=== PATIENT | male | born 1955 | race Caucasian/White ===

== ENCOUNTER 2022-02-01 14:53 | Outpatient (CLI) | payer BC, SELFPAY ==
--- OUTSIDE RECORDS SUMMARY | 2022-02-01 14:56 | XMS_ITS | Continuity of Care Document ---
:1955 Author Organization [facility] Address [address] [place] [address]- Care Team Providers Name Role Phone Tex Alexander Primary Care Physician [phone] Encounter 01/18/19 - 01/24/19 [facility] [address] [place] [address]- Attending Physician: Tam Arana MD Allergies, Adverse Reactions, Alerts Substance Reaction Severity Status shellfish Unknown Active Medications Allergy medication OTC Allergy medication OTC, 1 tablet daily, Each, 0 Start Date: 08/31/18 Status: OrderedLipitor 80 mg, , PO, , Bedtime, Each, Maintenance Start Date: 10/12/10 Status: Orderedmetoprolol succinate 100 mg, PO, Daily, Each, 0 Refill(s) Start Date: 08/31/18 Status: Orderedpantoprazole 40 mg, Daily, Each, 0 Refill(s) Start Date: 08/31/18 Status: Ordered Problem List Condition Effective Dates Status Health Status Informant Inguinal hernia(Confirmed)1 Active patient Kidney stones(Confirmed) 2014 Active pat ient [place] (myocardial infarction)(Confirmed)2 Active patient Upper GI bleed(Confirmed) 2004 Active pa tient [id number] 39 x 2 [place] (2 stents placed, Age 57 x 1 (1 stent placed) Procedures Procedure Date Related Diagnosis Body Site Status Colonoscopy 09/04/18 Completed Inguinal hernia1 2010 Completed Cardiac catheterization Comp leted Kidney stone2 Completed Stent placement3 Completed 1x 3 [id number], age 89when pt was 39 years old Social History Social History Type Response Smoking Status Former smoker, quit more shubham n 1 year ago Sex
--- OUTSIDE RECORDS SUMMARY | 2022-02-01 14:56 | XMS_ITS | Continuity of Care Document ---
:1955 Author Organization [facility] Address [address] [place] [address]- Care Team Providers Name Role Phone Tex Alexander Primary Care Physician [phone] Encounter 12/04/18 - 12/10/18 [facility] [address] [place] [address]- Attending Physician: Tex Alexander DO Allergies, Adverse Reactions, Alerts Substance Reaction Severity [...] patient Kidney stones(Confirmed) 2014 Active pat ient [place] (myocardial infarction)(Confirmed)2 Active patient Upper GI bleed(Confirmed) 2004 Active pa tient 7Alams1Pwn 39 x 2 [place] (2 stents placed, Age 57 x 1 (1 stent placed) Procedures Procedure Date Related Diagnosis Body Site Status Colonoscopy 09/04/18 Completed Inguinal hernia1 2010 Completed Cardiac catheterization Comp leted Kidney stone2 Completed Stent placement3 Completed 1x 3 [id number], age 89when pt was 39 years old Social History Social History Type Response Smoking Status Former smoker, quit more shubham n 1 year ago Sex
--- OUTSIDE RECORDS SUMMARY | 2022-02-01 14:56 | XMS_ITS | Clinical Summary ---
:1955 Author Organization [employer] [facility] [place] [address] Care Team Providers Name Role Phone Bruce Curry MD Primary Care Provider Allergies No known active allergies Medications Medication Sig Dispensed Refills Start Date End Date Status atorvastatin (LIPITOR) Take 80 mg by 0 Active 20 mg tablet mouth once daily. pantoprazole (PROTONIX) Take 40 mg by 0 Active 20 mg tablet mouth once daily. Active Problems Problem Noted Date Hyperlipidemia 11/13/2017 Hypertension 11/13/2017 ASCVD (arteriosclerotic cardiovascular disease) 2017 Dickinson's esophagus 11/13/2017 Prediabetes 11/13/2017 Social History Tobacco Use Types Packs/Day Years Used Date Former Smoker Smokeless Tobacco: Never Used Alcohol Use Standard Drinks/Week Comments No 0 (1 standard drink = 0.6 oz pure alcoho l) Sex Assigned at Date Recorded Not on file Obstetrics History Last Filed Vital Signs Vital Sign Reading Time Taken Comments Blood Pressure 170/91 11/13/2017 12:41 PM CDT Pulse 74 11/13/2017 12:41 PM CDT Temperature 36.6 ??C (97.9 ??F) 11/13/2017 12:41 PM CDT Respiratory Rate 20 11/13/2017 12:41 PM CDT Oxygen Saturation 100% 11/13/2017 12:41 PM CDT Inhaled Oxygen Concentration - - Weight 122.1 kg (269 lb 1.6 oz) 11/13/2017 12:41 PM CDT Height 182.9 cm (6') 11/13/2017 12:41 PM CDT Body Mass Index 36.5 11/13/2017 12:41 PM CDT Plan of Treatment Not on file Results Not on filefrom Last 3 Months Insurance Payer Benefit Plan / Subscriber ID Effective Dates Phone Addre ss Type Group BLUE CROSS BLUE CROSS OF [id number] 2017-Presen [address] [place] [address] [employer] [facility] Other 06/13/1979 PS[employer]CH EMEDICS, 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
--- OUTSIDE RECORDS SUMMARY | 2022-02-01 14:56 | XMS_ITS | Continuity of Care Document ---
:1955 Author Organization [facility] Address [address] [place] [address]- Care Team Providers Name Role Phone Tex Alexander Primary Care Physician [phone] Encounter 03/18/20 - 03/24/20 [facility] [address] [place] [address]- Attending Physician: Tex Alexander DO Allergies, Adverse [...] patient Kidney stones(Confirmed) 2014 Active pat ient [place] (myocardial infarction)(Confirmed)2 Active patient Upper GI bleed(Confirmed) 2004 Active pa tient 3Xosvb5Bfp 39 x 2 [place] (2 stents placed, Age 57 x 1 (1 stent placed) Procedures Procedure Date Related Diagnosis Body Site Status Colonoscopy 09/04/18 Completed Inguinal hernia1 2010 Completed Cardiac catheterization Comp leted Kidney stone2 Completed Stent placement3 Completed 1x 3 utkrvvw0Xisnelg, age 89when pt was 39 years old Social History Social History Type Response Smoking Status Former smoker, quit more shubham n 1 year ago Sex
--- OUTSIDE RECORDS SUMMARY | 2022-02-01 14:56 | XMS_ITS | Continuity of Care Document ---
:1955 Author Organization [facility] Address [address] [place] [address]- Encounter 11/25/21 - 12/01/21 [facility] [address] [place] [address]- Attending Physician: Ce Amin MD Allergies, Adverse Reactions, Alerts Substance Reaction [...] patient Kidney stones(Confirmed) 2014 Active pat ient [place] (myocardial infarction)(Confirmed)2 Active patient Upper GI bleed(Confirmed) 2004 Active pa tient 1Paith1Bbe 39 x 2 [place] (2 stents placed, Age 57 x 1 (1 stent placed) Procedures Procedure Date Related Diagnosis Body Site Status Colonoscopy 09/04/18 Completed Inguinal hernia1 2010 Completed Cardiac catheterization Comp leted Kidney stone2 Completed Stent placement3 Completed 1x 3 agnqvkk2Joenltl, age 89when pt was 39 years old Social History Social History Type Response Smoking Status Former smoker, quit more shubham n 1 year ago Sex
--- OUTSIDE RECORDS SUMMARY | 2022-02-01 14:56 | XMS_ITS | Encounter Summary ---
:1955 Demographics Home Phone Preferred Language German Marital Status Unknown Mandaeism Affiliation Unknown Race Unknown Ethnic Group Unknown Author Organization [facility] Address [address] [place] [address] Care Team Providers Name Role Phone Unavailable Primary Care Provider Unavailable Encounter Details Date Type Department Care Team Description 04/14/2006 Interface Meds [facility] Family Practice Provider, [address] [place] [address] Social History Tobacco Use Types Packs/Day Years Used Date Never Assessed Sex Assigned at Date Recorded Not on file documented as of this encounter Plan of Treatment Not on filedocumented as of this encounter Visit Diagnoses Not on filedocumented in this encounter Historical Medications This list may reflect changes made after this encounter. Medication Sig Dispensed Refills Start Date End Date Alavert 10 mg Tab, Rapid Place prn by mouth for 0 04/14/2006 Dissolve allergies Protonix 40 mg Tab 1 daily 0 04/14/2006 Metoprolol 50 mg Tab 1 daily 0 04/14/2006 Zetia 10 mg Tab 1 daily 0 04/14/2006 Lisinopril 5 mg Tab 1 daily 0 04/14/2006 Lipitor 40 mg Tab 1 daily 0 04/14/2006 added in this encounter
--- OUTSIDE RECORDS SUMMARY | 2022-02-01 14:56 | XMS_ITS | Continuity of Care Document ---
:1955 Author Organization [facility] Address [address] [place] [address]- Care Team Providers Name Role Phone Tex Alexander Primary Care Physician [phone] Encounter 11/15/18 - 11/21/18 [facility] [address] [place] [address]- Attending Physician: Tex Alexander DO Allergies, Adverse [...] patient Kidney stones(Confirmed) 2014 Active pat ient [place] (myocardial infarction)(Confirmed)2 Active patient Upper GI bleed(Confirmed) 2004 Active pa tient 5Pwhoh6Aks 39 x 2 [place] (2 stents placed, Age 57 x 1 (1 stent placed) Procedures Procedure Date Related Diagnosis Body Site Status Colonoscopy 09/04/18 Completed Inguinal hernia1 2010 Completed Cardiac catheterization Comp leted Kidney stone2 Completed Stent placement3 Completed 1x 3 onnecgh0Qpdsvxk, age 89when pt was 39 years old Social History Social History Type Response Smoking Status Former smoker, quit more shubham n 1 year ago Sex
--- OUTSIDE RECORDS SUMMARY | 2022-02-01 14:56 | XMS_ITS | Continuity of Care Document ---
:1955 Author Organization [facility] Address [address] [place] [address]- Care Team Providers Name Role Phone Tex Alexander Primary Care Physician [phone] Encounter 01/21/20 - 01/27/20 [facility] [address] [place] [address]- Attending Physician: Tex Alexander DO Allergies, Adverse [...] patient Kidney stones(Confirmed) 2014 Active pat ient [place] (myocardial infarction)(Confirmed)2 Active patient Upper GI bleed(Confirmed) 2004 Active pa tient 7Xmxbx2Xae 39 x 2 [place] (2 stents placed, Age 57 x 1 (1 stent placed) Procedures Procedure Date Related Diagnosis Body Site Status Colonoscopy 09/04/18 Completed Inguinal hernia1 2010 Completed Cardiac catheterization Comp leted Kidney stone2 Completed Stent placement3 Completed 1x 3 nvfvufi6Dmgxbsq, age 89when pt was 39 years old Social History Social History Type Response Smoking Status Former smoker, quit more shubham n 1 year ago Sex
--- OUTSIDE RECORDS SUMMARY | 2022-02-01 14:56 | XMS_ITS | Continuity of Care Document ---
:1955 Author Organization [facility] Address [address] [place] [address]- Care Team Providers Name Role Phone Tex Alexander Primary Care Physician [phone] Encounter 06/18/19 - 06/24/19 [facility] [address] [place] [address]- Attending Physician: Tex Alexander DO Allergies, Adverse [...] patient Kidney stones(Confirmed) 2014 Active pat ient [place] (myocardial infarction)(Confirmed)2 Active patient Upper GI bleed(Confirmed) 2004 Active pa tient 3Wplms9Far 39 x 2 [place] (2 stents placed, Age 57 x 1 (1 stent placed) Procedures Procedure Date Related Diagnosis Body Site Status Colonoscopy 09/04/18 Completed Inguinal hernia1 2010 Completed Cardiac catheterization Comp leted Kidney stone2 Completed Stent placement3 Completed 1x 3 oytodfk5Ocyqcdx, age 89when pt was 39 years old Social History Social History Type Response Smoking Status Former smoker, quit more shubham n 1 year ago Sex
--- OUTSIDE RECORDS SUMMARY | 2022-02-01 14:56 | XMS_ITS | Continuity of Care Document ---
:1955 Author Organization [facility] Address [address] [place] [address]- Care Team Providers Name Role Phone Tex Alexander Primary Care Physician [phone] Encounter 11/15/19 - 11/21/19 [facility] [address] [place] [address]- Attending Physician: Tex Alexander DO Allergies, Adverse [...] patient Kidney stones(Confirmed) 2014 Active pat ient [place] (myocardial infarction)(Confirmed)2 Active patient Upper GI bleed(Confirmed) 2004 Active pa tient 1Dzvrb8Omk 39 x 2 [place] (2 stents placed, Age 57 x 1 (1 stent placed) Procedures Procedure Date Related Diagnosis Body Site Status Colonoscopy 09/04/18 Completed Inguinal hernia1 2010 Completed Cardiac catheterization Comp leted Kidney stone2 Completed Stent placement3 Completed 1x 3 retzbml5Zmverbd, age 89when pt was 39 years old Results Sodium Level Most recent to oldest [Reference Range]: 1 Sodium Level [136-145 mMol/L] 138 mMol/L (11/15/19 8:55 AM) Potassium Level Most recent to oldest [Reference Range]: 1 Potassium Level [3.5-5.1 mMol/L] 4.3 mMol/L (11/15/19 8:55 AM) Chloride Level Most recent to oldest [Reference Range]: 1 Chloride Level [98-107 mMol/L] 105 mMol/L (11/15/19 8:55 AM) Carbon Dioxide Level Most recent to oldest [Reference Range]: 1 Carbon Dioxide Level [21-31 mMol/L] 24 mMol/L (11/15/19 8:55 AM) BUN Most recent to oldest [Reference Range]: 1 BUN [7-25 mg/dL] 16 mg/dL (11/15/19 8:55 AM) Creatinine Most recent to oldest [Reference Range]: 1 Creatinine [0.7-1.3 mg/dL] 0.9 mg/dL (11/15/19 8:55 AM) Calcium Total Most recent to oldest [Reference Range]: 1 Calcium Total [8.6-10.3 mg/dL] 9.2 mg/dL (11/15/19 8:55 AM) Glucose Level Most recent to oldest [Reference Range]: 1 Glucose Level [See comments below mg/dL] 154 mg/dL 1 *ABN* (11/15/19 8:55 AM) 1Result Comment: Reference Range for Glucose is 74-109 mg/dLMagnesium Level Most recent to oldest [Reference Range]: 1 Magnesium Level [1.9-2.7 mg/dL] 2.1 mg/dL (11/15/19 8:55 AM) Albumin Level Most recent to oldest [Reference Range]: 1 Albumin Level [3.5-5.7 gm/dL] 4.3 gm/dL (11/15/19 8:55 AM) Bilirubin Total Most recent to oldest [Reference Range]: 1 Bilirubin Total [0.3-1.0 mg/dL] 1.1 mg/dL *HI* (11/15/19 8:55 AM) ALT/SGPT Most recent to oldest [Reference Range]: 1 ALT/SGPT [7-52 Units/L] 29 Units/L (11/15/19 8:55 AM) AST/SGOT Most recent to oldest [Reference Range]: 1 AST/SGOT [13-39 Units/L] 20 Units/L (11/15/19 8:55 AM) Alkaline Phosphatase Most recent to oldest [Reference Range]: 1 Alkaline Phosphatase [45-115 IU/L] 128 IU/L *HI* (11/15/19 8:55 AM) WBC Count Most recent to oldest [Reference Range]: 1 WBC Count [4.40-10.80 X10 3/uL] 6.76 X10 3/uL (11/15/19 8:55 AM) Hemoglobin Most recent to oldest [Reference Range]: 1 Hemoglobin [13.1-17.0 gm/dL] 14.9 gm/dL (11/15/19 8:55 AM) Hematocrit Most recent to oldest [Reference Range]: 1 Hematocrit [39.0-50.0 %] 42.1 % (11/15/19 8:55 AM) Platelet Count Most recent to oldest [Reference Range]: 1 Platelet Count [145-428 X10 3/uL] 211 X10 3/uL (11/15/19 8:55 AM) Social History Social History Type Response Smoking Status Former smoker, quit more shubham n 1 year ago Sex
--- OUTSIDE RECORDS SUMMARY | 2022-02-01 14:56 | XMS_ITS | Continuity of Care Document ---
:1955 Author Organization [facility] Address [address] [place] [address]- Care Team Providers Name Role Phone Tex Alexander Primary Care Physician [phone] Encounter 01/24/19 - 01/30/19 [facility] [address] [place] [address]- Attending Physician: Tex Alexander DO Allergies, Adverse [...] patient Kidney stones(Confirmed) 2014 Active pat ient [place] (myocardial infarction)(Confirmed)2 Active patient Upper GI bleed(Confirmed) 2004 Active pa tient 4Wxwnb5Okv 39 x 2 [place] (2 stents placed, Age 57 x 1 (1 stent placed) Procedures Procedure Date Related Diagnosis Body Site Status Colonoscopy 09/04/18 Completed Inguinal hernia1 2010 Completed Cardiac catheterization Comp leted Kidney stone2 Completed Stent placement3 Completed 1x 3 qovxdis4Ygbffes, age 603when pt was 39 years old Social History Social History Type Response Smoking Status Former smoker, quit more shubham n 1 year ago Sex
--- OUTSIDE RECORDS SUMMARY | 2022-02-01 14:56 | XMS_ITS | Clinical Summary ---
:1955 Demographics Home Phone Preferred Language Namibian Marital Status Unknown Jainism Affiliation Unknown Race Unknown Ethnic Group Unknown Author Organization [facility] incl pattie [facility] Address [address] [id number] Care Team Providers Name Role Phone Inactive, Administrativel Primary Care Provider [phone] Source Comments If you need additional information that is not available on Care Everywhere, please contact our Medical Records Department during business hours (Tuesday - Tuesday, 8 am - 5 pm) at . During nonbusiness hours, please contact our Trauma and Emergency Center at .[facility] including [facility] Medications Medications may not be up to date as of this document. Always verify current medications with the patient. Medication Sig Dispensed Refills Start Date End Date Status Lipitor 40 mg Tab 1 daily 0 04/14/2006 A ctive Lisinopril 5 mg Tab 1 daily 0 04/14/2006 Active Zetia 10 mg Tab 1 daily 0 04/14/2006 Act ezequiel Metoprolol 50 mg Tab 1 daily 0 04/14/2006 Active Protonix 40 mg Tab 1 daily 0 04/14/2006 Active Alavert 10 mg Tab, Place prn by mouth 0 04/14/2006 Active Rapid Dissolve for allergies Immunizations Name Administration Dates Next Due Influenza Vaccine Whole 04/11/2006 Pneumococcal polysaccharide PPV23 04/11/2006 Social History Tobacco Use Types Packs/Day Years Used Date Never Assessed Sex Assigned at Date Recorded Not on file Plan of Treatment Health Maintenance Due Date Last Done Comments CREATININE/EGFR 1955 HEPATITIS C SCREENING 1955 POTASSIUM 1955 COVID-19 Vaccine (#1) 1955 DEPRESSION/ANXIETY PHQ4 1973 LIPID SCREEN 1973 WELLNESS VISIT 1973 DTaP/Tdap/Td (1 - Tdap) 1974 PERTUSSIS 1974 COLONOSCOPY 2000 DIABETES SCREENING 2000 SHINGLES VACCINE (SHINGRIX) (1 of 2) 2005 PNEUMOCOCCAL AGES 65 YEARS OR MORE (1 - PCV) 2020 INFLUENZA (#1) 2022 04/11/2006 Care Teams Production Cook Relationship Specialty Start Date End Date Inactive, Administrativel PCP - General 05/03/15 [address] [facility] [place] [address]
--- OUTSIDE RECORDS SUMMARY | 2022-02-01 14:56 | XMS_ITS | Continuity of Care Document ---
:1955 Author Organization [facility] Address [address] [place] [address]- Encounter 07/07/21 - 07/13/21 [facility] [address] [place] [address]- Encounter Diagnosis Bronchitis, not specified as acute or chronic (Final) - Essential (primary) hypertension (Final) - Pure hypercholesterolemia, unspecified (Final) - Attending Physician: Mali Stoddard NP Allergies, Adverse Reactions, Alerts Substance Reaction Severity [...] Upper GI bleed(Confirmed) 2004 Active pa tient 0Ruiad8Dxe 39 x 2 PR (2 stents placed, Age 57 x 1 (1 stent placed) Procedures Procedure Date Related Diagnosis Body Site Status Colonoscopy 09/04/18 Completed Inguinal hernia1 2010 Completed Cardiac catheterization Comp leted Kidney stone2 Completed Stent placement3 Completed 1x 3 tjcoyjf0Fuefffq, age 603when pt was 39 years old Results SARS-CoV-2 (micro) Most recent to oldest [Reference Range]: 1 SARS-CoV-2 [Not Detected] Not Detected 1 (07/07/21 9:13 AM) 1Result Comment: Testing Performed by RT-PCR method. Social History Social History Type Response Smoking Status Former smoker, quit more shubham n 1 year ago Sex
--- OUTSIDE RECORDS SUMMARY | 2022-02-01 14:56 | XMS_ITS | Continuity of Care Document ---
:1955 Author Organization [facility] Address [address] [place] [address]- Encounter 05/22/20 - 08/14/20 [facility] [address] [place] [address]- Attending Physician: Sumit CLAYTON, Tam Powell Allergies, Adverse Reactions, Alerts Substance Reaction Severity [...] patient Kidney stones(Confirmed) 2014 Active pat ient [place] (myocardial infarction)(Confirmed)2 Active patient Upper GI bleed(Confirmed) 2004 Active pa tient 8Okgqy5Ugk 39 x 2 [place] (2 stents placed, Age 57 x 1 (1 stent placed) Procedures Procedure Date Related Diagnosis Body Site Status Colonoscopy 09/04/18 Completed Inguinal hernia1 2010 Completed Cardiac catheterization Comp leted Kidney stone2 Completed Stent placement3 Completed 1x 3 hzrvldg4Dxdobty, age 603when pt was 39 years old Social History Social History Type Response Smoking Status Former smoker, quit more shubham n 1 year ago Sex
[2022-02-01 21:36] LABS: Albumin* 4.2 g/dL (3.3-5.0); Chloride* 105 mmol/L (96-114)
[2022-02-01 21:37] LABS: Potassium* 4.1 mmol/L (3.6-5.1); Sodium* 138 mmol/L (135-149)
[2022-02-01 21:39] LABS: Aspartate Amino Transferase* 27 U/L (12-35); Bilirubin Total* 0.7 mg/dL (0.1-1.5); Carbon Dioxide* 23 mmol/L (20-32); Creatinine* 1.2 mg/dL (0.5-1.5); Estimated Glomerular Filt Rate 67 ml/min
[2022-02-01 21:40] LABS: Alanine Aminotransferase* 20 U/L (4-50); Alkaline Phosphatase* 101 U/L (40-150); Blood Urea Nitrogen* 15 mg/dL (7-30); Calcium* 9.4 mg/dL (8.4-10.6); Glucose* 105 mg/dL (60-115)
== END 2022-02-01 14:54 | disposition home or self-care (01) ==
PROVIDERS: PCP Family Medicine; Visit Provider Family Medicine
DX: E11.9 Type 2 diabetes mellitus without complications (principal); I10 Essential (primary) hypertension; R35.0 Frequency of micturition; E11.29 Type 2 diabetes mellitus with other diabetic kidney complication
CPT/HCPCS: 80053; 87086

== ENCOUNTER 2022-02-04 15:32 | Outpatient (CLI) | payer BC, SELFPAY ==
--- OUTSIDE RECORDS SUMMARY | 2022-02-04 11:27 | XMS_ITS | Clinical Summary ---
:1955 Demographics Home Phone Preferred Language Libyan Marital Status Unknown Moravian Affiliation Unknown Race Unknown Ethnic Group Unknown Author Organization [facility] incl pattie [facility] Address [address] [id number] Care Team Providers Name Role Phone Inactive, Administrativel Primary Care Provider [phone] Source Comments If you need additional information that is not available on Care Everywhere, please contact our Medical Records Department during business hours (Tuesday - Tuesday, 8 am - 5 pm) at . During nonbusiness hours, please contact our Trauma and Emergency Center at .[facility] including [facility] Medications Medications may not be up to [...] 2020 INFLUENZA (#1) 2022 04/11/2006 Care Teams Sweet Pickled Fruit Maker Relationship Specialty Start Date End Date Inactive, Administrativel PCP - General 05/03/15 [address] [facility] [place] [address]
--- OUTSIDE RECORDS SUMMARY | 2022-02-04 11:27 | XMS_ITS | Encounter Summary ---
:1955 Demographics Home Phone Preferred Language Turkmen Marital Status Unknown Restorationism Affiliation Unknown Race Unknown Ethnic Group Unknown Author Organization [facility] Address [address] [place] [address] Care Team Providers Name Role Phone Unavailable Primary Care Provider Unavailable Encounter Details Date Type Department Care Team Description 04/14/2006 Interface Meds [facility] Family Practice Provider, [address] [place] [address] Social History Tobacco Use Types [...]
--- OUTSIDE RECORDS SUMMARY | 2022-02-04 11:27 | XMS_ITS | Clinical Summary ---
:1955 Author Organization [employer] [facility] [place] [address] Care Team Providers Name Role Phone Bruce [...] Type Group BLUE CROSS [employer] OF [id number] 2017[employer] [address] [place] [address] [employer] Other 06/13/1979 PS[employer]CH EMEDICS, TESTING (Work) HAILY [address] [place] [address] [employer] 06/13/2000 ATTN ROSA (Home) GADIEN [address] [place] [address] VLADIMIR DS [employer] Employer 06/13/2000 A TTN [employer] ADVANTAGE (Home) [address] [place] [address] [employer] Employer 06/13/2000 OR ANSON [employer] (Home) DEPT [id number] Franklyn Macdonald [phone] WANG (Work) [place] [address] Care Teams Digital Field Service Technician Relationship Specialty Start Date End Date Bruce Curry MD PCP - General Family Practice 11/13/[address] [place] [address]
[2022-02-04 21:51] LABS: Collection Time Urine 24 Hours; Total Volume 24 Hour Urine 3200 ml; Urine Creatinine mg/24 Hour 0 mg/Day
[2022-02-04 21:58] LABS: Total Protein 24 Hour Urine 3072 mg/dL; Total Protein Urine 96 mg/dL
[2022-02-04 22:02] LABS: Creatinine Urine 57.2 mg/dL
== END 2022-02-04 15:33 | disposition home or self-care (01) ==
PROVIDERS: PCP Family Medicine; Visit Provider Family Medicine
DX: E11.29 Type 2 diabetes mellitus with other diabetic kidney complication (principal); R80.9 Proteinuria, unspecified; R35.0 Frequency of micturition
CPT/HCPCS: 82570; 84156

== ENCOUNTER 2022-02-22 14:13 | Outpatient (CLI) | payer BC, SELFPAY ==
--- OUTSIDE RECORDS SUMMARY | 2022-02-22 14:19 | XMS_ITS | Clinical Summary ---
:1955 Demographics Home Phone Preferred Language Japanese Marital Status Unknown Mandaen Affiliation Unknown Race Unknown Ethnic Group Unknown Author Organization [facility] incl pattie [facility] Address [address] [id number] Care Team Providers Name Role Phone Inactive, Administrativel Primary Care Provider [phone] Source Comments If you need additional information that is not available on Care Everywhere, please contact our Medical Records Department during business hours (Tuesday - Tuesday, 8 am - 5 pm) at . During nonbusiness hours, please contact our Trauma and Emergency Center at .[facility] including [facility] Medications Medications may not be up to [...] 2020 INFLUENZA (#1) 2022 04/11/2006 Care Teams Fiber Worker Relationship Specialty Start Date End Date Inactive, Administrativel PCP - General 05/03/15 [address] [facility] [place] [address]
--- OUTSIDE RECORDS SUMMARY | 2022-02-22 14:19 | XMS_ITS | Encounter Summary ---
:1955 Demographics Home Phone Preferred Language Urdu Marital Status Unknown Episcopalian Affiliation Unknown Race Unknown Ethnic Group Unknown Author Organization [facility] Address [address] [place] [address] Care Team Providers Name Role Phone Unavailable Primary Care Provider Unavailable Encounter Details Date Type Department Care Team Description 04/14/2006 Interface Meds [facility] [place] Family Practice Provider, [address] [place] [address] Social History Tobacco Use Types [...]
--- OUTSIDE RECORDS SUMMARY | 2022-02-22 14:19 | XMS_ITS | Clinical Summary ---
:1955 Author Organization [facility] [place] [address] Care Team Providers Name Role Phone Bruce [...] Type Group BLUE CROSS BL[employer] OF [id number] 2017-Presen [address] [place] [address] [employer] [facility] Other 06/13/1979 PSYCH EMEDICS, TESTING (Work) HAILY [address] [place] [address] [employer] [facility] 06/13/2000 ATTN ROSA (Home) GADIEN [address] [place] [address] [employer] [facility] Employer 06/13/2000 A [employer] (Home) [address] [place] [address] [employer] [facility] Employer 06/13/2000 OR [place] (Home) DEPT [id number] Franklyn Macdonald [phone] (Work) [place] [id number] Care Teams Pharmacy Student Relationship Specialty Start Date End Date Bruce Curry MD PCP - General Family Practice 11/13/[address] [place] [address]
--- NOTE | 2022-02-22 15:00 | CRLHL7_ITS ---
For Patients: As a result of the Cures Act, medical imaging exams and procedure reports are released immediately into your electronic medical record. You may view this report before your referring provider. If you have questions, please contact your health care provider. INDICATION: Type 2 diabetes mellitus TECHNIQUE: Ultrasound renal bilateral. Garcia-scale and color Doppler sonographic images were acquired of the kidneys and urinary bladder. COMPARISON: None FINDINGS: Right Kidney: 9.3 cm. The right kidney is normal in appearance and echotexture. No hydronephrosis or ureterectasis is seen. Left Kidney: 10.6 cm. The left kidney is normal in appearance and echotexture. No hydronephrosis or ureterectasis is seen. Bladder: The bladder is unremarkable in appearance. Color Doppler images demonstrate bilateral ureteral jets. Mild enlargement of the prostate gland is noted measuring 4.8 x 3.6 x 4.4 cm. IMPRESSION: 1. Mild enlargement of the prostate gland is noted measuring 4.8 x 3.6 x 4.4 cm. Correlation with physical examination and PSA levels are recommended. Dictated by Mahin Lopez MD @ 02/22/2022 3:35:06 PM Dictated by: Mahin Lopez MD @ 02/22/2022 15:35:11 (Electronically Signed)
== END 2022-02-22 14:14 | disposition home or self-care (01) ==
LOC: US 14:17
PROVIDERS: PCP Family Medicine; Visit Provider Family Medicine
DX: E11.29 Type 2 diabetes mellitus with other diabetic kidney complication (principal); R80.9 Proteinuria, unspecified; N40.0 Benign prostatic hyperplasia without lower urinary tract symptoms
CPT/HCPCS: 76770

== ENCOUNTER 2023-03-01 14:47 | Outpatient (CLI) | payer BC, SELFPAY | END 2023-03-01 14:48 | disposition home or self-care (01) | LOC: LKVREF 14:48 | PROVIDERS: PCP Family Medicine; Visit Provider Family Medicine | DX: R20.0 Anesthesia of skin (principal); I10 Essential (primary) hypertension; E11.9 Type 2 diabetes mellitus without complications; G45.9 Transient cerebral ischemic attack, unspecified; R80.9 Proteinuria, unspecified | CPT/HCPCS: 80048; 82043; 82570; 84443 ==

== ENCOUNTER 2023-12-01 08:41 | Outpatient (CLI) | payer BC, SELFPAY ==
--- OUTSIDE RECORDS SUMMARY | 2023-12-01 08:48 | XMS_ITS | Clinical Summary ---
Author Organization [facility] Address [address] [place] [address] Care Team Providers Care Pharmacist Intern Name Role Phone Chin Tang D.O. Primary Care Provider [phone] Source Comments Patient records contain information from all sites at [facility]. For routine questions regarding patient records, call [phone] during business hours, M-F 8:00 AM - 5:00 PM Central Time. Record requests for emergency care only can be directed to [phone] at any time.[facility] Allergies Active Allergy Reactions Criticality Noted Date Comments Shellfish Containing Products Anaphylaxis,Other (see comments) 03/22/2012 Shrimp Anaphylaxis 09/13/2014 Medications Medication Sig Dispensed Refills Start Date End Date Status Microlet Lancet 04/19/2022 Active Contour Next Test Strips strips 05/27/2022 Active metoprolol succinate (TOPROL-XL) 100 mg 24 hr tabletIndications:Hyp ertension And Chronic Kidney Disease Stage 2 Take 1 tablet (100 mg total) by mouth daily. 90 tablet 3 11/23/2022 Active desloratadine (CLARINEX REDITAB) 5 mg disintegrating tabletIndications:All ergy Seasonal Dissolve 1 tablet (5 mg total) in the mouth daily. 90 tablet 3 11/23/2022 Active pantoprazole (PROTONIX) 40 mg EC tabletIndications:Bar rett's Esophagus Take 1 tablet (40 mg total) by mouth every morning before breakfast. 90 tablet 3 11/23/2022 Active atorvastatin (LIPITOR) 80 mg tabletIndications:Hyp erlipidemia Take 1 tablet (80 mg total) by mouth daily. 90 tablet 3 11/23/2022 Active triamcinolone (KENALOG) 0.1 % cream Apply 1 Application topically 2 (two) times a day. Apply to affected area as needed. 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 Screening Examination Diabetes Mellitus from Last 3 Months Immunizations Name Administration Dates Next Due DTaP (Infanrix, Tripedia) 10/01/2009 HepB Adult 07/16/1999 Influenza (IM) Preservative Free 04/01/2011 Influenza Split 04/17/2005 Influenza, Unspecified 03/13/2015,03/26/2014 Td (Adult), adsorbed 07/16/1999 Tdap 10/01/2009 Family History Medical History Relation Name Comments Alcohol abuse Brother Hyperlipidemia Brother Hypertension Brother Coronary artery disease Father Heart attack Father Alcohol abuse Grandfather Paternal Cataracts Mother Relation Name Status Comments Brother Father Grandfather Paternal Mother Social History Tobacco Use Types Packs/Day Years Used Date Smoking Tobacco: Former Cigarettes Smokeless Tobacco: Never Tobacco Cessation:Counseling Given: Not Answered Alcohol Use Standard Drinks/Week Comments Yes 1 (1 standard drink = 0.6 oz pur e alcohol) Humiliation, Afraid, Rape, and Kick questionnair e Answer Date Recorded Within the last year, have y ou been afraid of your partner or ex-partner? No 11/16/2022 Within the last year, have y ou been humiliated or emotionally abused in other ways by your partner or ex-partner? No Within the last year, have y ou been kicked, hit, slapped, or otherwise physically hurt by your partner or ex-partner? No 11/16/2022 Within the last year, have y ou been raped or forced to have any kind of sexual activity by your partner or ex-partner? No 11/16/2022 Overall Financial Resource Strain (CARDIA) Answe r Date Recorded How hard is it for you to pa y for the very basics like food, housing, medical care, and heating? Not hard at all 11/16/2022 PHQ-2 Answer Date Recorded PHQ-2 Score 0 02/23/2023 Exercise Vital Sign Answer Date Recorde d On average, how many days pe r week do you engage in moderate to strenuous exercise (like a brisk walk)? 4 days 11/16/2022 On average, how many minutes do you engage in exercise at this level? 60 min 11/16/2022 Hunger Vital Sign Answer Date Recorded Within the past 12 months, y ou worried that your food would run out before you got the money to buy more. Never true 11/17/19 Within the past 12 months, t he food you bought just didn't last and you didn't have money to get more. Never true 11/16/2022 PRAPARE - Transportation Answer Date Re corded In the past 12 months, has l ack of transportation kept you from medical appointments or from getting medications? No 11/2022 In the past 12 months, has l ack of transportation kept you from meetings, work, or from getting things needed for daily living? No 11/16/2022 Depression Answer Date Recor ded PHQ-9 Total Score (max 27) 0 02/23 Nutrition Answer Date Recorded Nutrition: EVOO Fat Source Unknown 11/16 On average, how many serving s of fruits and vegetables do you eat per day (serving size is equal to 1 cup or approximately the size of a tennis ball)? 0-2 11/16/2022 Dental Answer Date Recorded Dental: Regular Dentist Yes 11/17/19 Employment Answer Date Recorded Employment status Retired 11/16/2022 Housing Stability Answer Date Recorded What is your living situation today? I have a [facility] place to live 11/16/2022 Sex and Gender Information Value Date Recorded Sex Assigned at Not on file Gender Identity Not on file Sexual Orientation Not on file Last Filed Vital Signs Vital Sign Reading Time Taken Comments Blood Pressure 128/87 11/23/2022 10:49 AM CDT Pulse 57 11/23/2022 10:49 AM CDT Temperature 36.7 ??C (98.1 ??F) 11/23/2022 1 0:49 AM CDT Respiratory Rate 16 02/09/2016 5:05 PM CDT Value from [employer]. Oxygen Saturation - - Inhaled Oxygen Concentration - - Weight 116 kg (255 lb 4.7 oz) 11/23/2022 10:49 AM CDT Height 178 cm (5' 10.08) 11/23/2022 10 :49 AM CDT Body Mass Index 36.55 11/23/2022 10:49 AM CDT Plan of Treatment Health Maintenance Due Date Last Done Comments CT Colonography 1955 FIT 1955 Hepatitis C Screening 1955 Colonoscopy 04/13/2022 04/13/2012, 06/2011, 05/05/2011, Additional history exists COVID-19 Vaccine (2022-07 4 season) 2023 03/01/2022, 11/25/2021, 04/03/2021, Additional history exists Influenza Vaccine (#1) 2023 2, 03/13/2021, 03/18/2020, Additional history exists Depression Screening (Annual PHQ-2) 06/13/2023 Fall Risk Screen (Annual) 06/13/2023 Fasting Glucose for Diabetes Screening 06/29/2023 06/29/2022, 06/29/2022, 11/13/2017, Additional history exists Office Visit for Blood Press ure Check / Re-check 11/24/2023 11/23/2022 Visit: Chronic Disease, age 18+ 11/24/2023 Cologuard 05/11/2025 05/11/2022 Colorectal Cancer Screening 05/11/2025 Lipid (Cholesterol) Screening 06/29/2027, 07/22/2015, 07/12/2014, Additional history exists DTaP,Tdap,and Td Vaccines (4 - Td or Tdap) 01/24/2029 01/24/2019, 10/01/2009, 10/01/2009, Additional history exists Hepatitis B Vaccines Completed 09/12/2012, 05/01/2012, 03/09/2012, Additional history exists Abdominal Aortic Aneurysm (A AA) Screen Completed 02/09/2016, 06/03/2015, 03/22/2012 Zoster Vaccines Completed 08/08/2020, 03/18/2020 Pneumococcal vaccine (65+ years) Completed 09/11/2021, 08/08/2020, 04/11/2006 Medical Devices Implanted Type Area Ager Operator Device Identifier Shelf Expiration Date Model / Serial / Lot Xience Stent 3.5 X 28 - [id number] Implanted:Qty: 1 on 10/16/2011 Cardiac Stent Newby Description:Device Manufactu rer - [employer]. Device Status Text - [id number]. Stent Inlay 7fr X 28cm - [id number] Implanted:Qty: 1 on 02/09/2016 Ureteral Stent [employer].Bard Description:Device Manufactu rer - [employer] Patient Care Division. Device Status Text - [id number]. Procedures Procedure Name Priority Date/Time Associated Diagnosis Comments HEMOGLOBIN A1C, B Routine 06/29/2022 8:5 7 AM EXAMINATION GRADER Diabetes Mellitus Type 2 (HCC) LIPID PANEL, S Routine 06/29/2022 8:57 AM EXAMINATION GRADER Diabetes Mellitus Type 2 (HCC) COLOGUARD Routine 05/11/2022 7:40 AM EXAMINATION GRADER Screening Cancer Colon CT ABDOMEN PELVIS WITHOUT IV CONTRAST RAD - Routine (most inpatients and all outpatients) 02/09/2016 1:08 AM CDT COLONOSCOPY Routine 04/13/2012 2:34 PM CDT from Last 3 Months or Most Recently Relevant to Health Maintenance Results * (ABNORMAL) Lipid Panel (06/29/2022 8:57 AM EXAMINATION GRADER) Triglycerides 183(H) mg/dL 06/29/2022 9:46 AM EXAMINATION GRADER AUST Comment: ----REFERENCE VALUE---- Normal: <150 mg/dL Borderline High: 150-199 mg/dL High: 200-499 mg/dL Very High: > or =500 mg/dL Cholesterol, Total 171 mg/dL 2022 9:46 AM EXAMINATION GRADER AUST Comment: ----REFERENCE VALUE---- Desirable: < 200 mg/dL Borderline High: 200 - 239 mg/dL High: > or = 240 mg/dL Cholesterol, LDL, Calculated 103 mg/dL 06/29/2022 9:46 AM EXAMINATION GRADER AUST Comment: ----REFERENCE VALUE---- Desirable: <100 mg/dL Above Desirable: 100-129 mg/dL Borderline High: 130-159 mg/dL High: 160-189 mg/dL Very High: >=190 mg/dL ----ADDITIONAL INFORMATION---- LDL cholesterol calculated using the Pleitez/NIH equation. Cholesterol, HDL 36(L) >=40 mg/dL 06/29/19 9:46 AM EXAMINATION GRADER AUST Cholesterol, Non-HDL, Calculated 135 mg/dL 06/29/2022 9:46 AM EXAMINATION GRADER AUST Comment: ----REFERENCE VALUE---- Desirable: <130 mg/dL Above Desirable: 130-159 mg/dL Borderline High: 160-189 mg/dL High: 190-219 mg/dL Very High: > or =220 mg/dL Fasting (8 HR or more) Yes 06/29/2022 8:59 AM EXAMINATION GRADER AUST Blood (Blood, Venous) 06/29/2022 8:57 AM EXAMINATION GRADER 06/29/2022 8:59 AM EXAMINATION GRADER Chin Tang D.O. LAB BLOOD ADD-ON [facility] [address] [place] [address], [facility] [address] [place] [address] * (ABNORMAL) Hemoglobin A1c (06/29/2022 8:57 AM EXAMINATION GRADER) Hemoglobin A1c, B 6.4(H) 4.2 - 5.6 % 06/29/2022 9:20 AM EXAMINATION GRADER AUST Comment: Hemoglobin A1c values of 5.7-6.4 percent indicate an increased risk for developing diabetes mellitus. In diabetic patients, HbA1c goals should be discussed with healthcare provider. Blood (Blood, Venous) 06/29/2022 8:57 AM EXAMINATION GRADER 06/29/2022 8:59 AM EXAMINATION GRADER Chin Tang D.O. LAB BLOOD ADD-ON [facility] [address] [place] [address], [facility] [address] [place] [address] * Cologuard-Sent Out Lab (05/11/2022 7:40 AM EXAMINATION GRADER) Result Negative Negative 05/17/2022 11:08 AM EXAMINATION GRADER EXLI Comment: NEGATIVE TEST RESULT. A negative Cologuard result indicates a low likelihood that a colorectal cancer (CRC) or advanced adenoma (adenomatous polyps with more advanced pre-malignant features) ??is present. The chance that a person with a negative Cologuard test has a colorectal cancer is less than 1 in 1500 (negative predictive value >99.9%) or has an ??advanced adenoma is less than ??5.3% (negative predictive value 94.7%). These data are based on a prospective cross-sectional study of 10,000 individuals at average risk for colorectal cancer who were screened with both Cologuard and colonoscopy. (Yuli Barber. et al, N Engl J Med 2014;370(14):8927-7060) The normal value (reference range) for this assay is negative. COLOGUARD RE-SCREENING RECOMMENDATION: Periodic colorectal cancer screening is an important part of preventive healthcare for asymptomatic individuals at average risk for colorectal cancer. ??Following a negative Cologuard result, the [place] Cancer Society and U.S. Multi-Society Task Force screening guidelines recommend a Cologuard re-screening interval of 3 years. References: [place] Cancer Society Guideline for Colorectal Cancer Screening: https://www.cancer.org/cancer/fdzhm-qddlab-oybppd/detection- diagnosis-staging/acs-recommendations.html.; Nasim FERRARA, Mayela PUGH, Cheryl RauschK, Colorectal Cancer Screening: Recommendations for Physicians and Patients from the U.S. Multi-Society Task Force on Colorectal Cancer Screening , Am J Gastroenterology 2017; 112:8433-0092. TEST DESCRIPTION: Composite algorithmic analysis of stool DNA-biomarkers with hemoglobin immunoassay. ?? Quantitative values of individual biomarkers are not reportable and are not associated with individual biomarker result reference ranges. Cologuard is intended for colorectal cancer screening of adults of either sex, 45 years or older, who are at average-risk for colorectal cancer (CRC). Cologuard has been approved for use by the U.S. FDA. The performance of Cologuard was established in a cross sectional study of average-risk adults aged 50-84. Cologuard performance in patients ages 45 to 49 years was estimated by sub-group analysis of near-age groups. Colonoscopies performed for a positive result may find as the most clinically significant lesion: colorectal cancer [4.0%], advanced adenoma (including sessile serrated polyps greater than or equal to 1cm diameter) [20%] or non- advanced adenoma [31%]; or no colorectal neoplasia [45%]. These estimates are derived from a prospective cross-sectional screening study of 10,000 individuals at average risk for colorectal cancer who were screened with both Cologuard and colonoscopy. (Yuli Barber. et al, N Engl J Med 2014;370(14):1649-8226.) Cologuard may produce a false negative or false positive result (no colorectal cancer or precancerous polyp present at colonoscopy follow up). A negative Cologuard test result does not guarantee the absence of CRC or advanced adenoma (pre-cancer). The current Cologuard screening interval is every 3 years. ([place] Cancer Society and U.S. Multi-Society Task Force). Cologuard performance data in a 10,000 patient pivotal study using colonoscopy as the reference method can be accessed at the following location: www.[facility]/results. Additional description of the Cologuard test process, warnings and precautions can be found at www.[employer].com. Stool (Stool) 05/11/2022 7:4 0 AM EXAMINATION GRADER 05/12/2022 3:58 PM EXAMINATION GRADER Chin Tang D.O. LAB BODY FLUIDS AND STOOLS ORDERABLES [employer] [address] [place] [id number] [facility] [address] [facility], [address] [place] [address] * Colonoscopy (04/13/2012 2:34 PM CDT) 04/13/2012 2:34 PM CDT David Finn M.D., Ph.D. GI PROCEDURE ORDERABLES [facility] [address] [place] [address], [facility] from Last 3 Months or Most Recently Relevant to Health Maintenance Care Teams Pharmacist Intern Relationship Specialty Start Date End Date Chin Tang D.O. [address] [place] [id number] PCP - General Family Medicine 03/17/22
--- OUTSIDE RECORDS SUMMARY | 2023-12-01 08:49 | XMS_ITS | Clinical Summary ---
Author Organization [facility] Address [place], [place] [address] Care Team Providers Care Relay Checker Name Role Phone Bruce Curry MD Primary Care Provider [phone] Allergies No known active allergies Medications Medication Sig Dispensed Refills Start Date End Date Status atorvastatin (LIPITOR) 20 mg tablet Take 80 mg by mouth once daily. Active pantoprazole (PROTONIX) 20 mg tablet Take 40 mg by mouth once daily. Active Active Problems Problem Noted Date Diagnosed Date Hyperlipidemia 11/13/2017 Hypertension 11/13/2017 ASCVD (arteriosclerotic cardiovascular disease) 11/13/2017 Dickinson's esophagus 11/13/2017 Prediabetes 11/13/2017 Social History Tobacco Use Types Packs/Day Years Used Date Smoking Tobacco: Former Smokeless Tobacco: Never Alcohol Use Standard Drinks/Week Comments No 0 (1 standard drink = 0.6 oz pur e alcohol) Sex and Gender Information Value Date Recorded Sex Assigned at Not on file Gender Identity Not on file Sexual Orientation Not on file Obstetrics History Last Filed Vital Signs Vital Sign Reading Time Taken Comments Blood Pressure 170/91 11/13/2017 12:41 PM CDT Pulse 74 11/13/2017 12:41 PM CDT Temperature 36.6 ??C (97.9 ??F) 11/13/2017 1 2:41 PM CDT Respiratory Rate 20 11/13/2017 12:4 1 PM CDT Oxygen Saturation 100% 11/13/2017 12: 41 PM CDT Inhaled Oxygen Concentration - - Weight 122.1 kg (269 lb 1.6 oz) 018 12:41 PM CDT Height 182.9 cm (6') 11/13/2017 12:41 PM CDT Body Mass Index 36.5 11/13/2017 12:41 PM CDT Plan of Treatment Not on file Care Teams Relay Checker Relationship Specialty Start Date End Date Bruce Curry MD [address] [place] [address] PCP - General Family Practice 11/13/17
--- OUTSIDE RECORDS SUMMARY | 2023-12-01 08:49 | XMS_ITS | Referral Summary ---
Author Organization [facility] Address [address] [place] [address] Care Team Providers Care Collection Systems Administrator Name Role Phone Chin Tang D.O. Primary Care Provider [phone] Source Comments Patient records contain information from all sites at [facility]. For routine questions regarding patient records, call [phone] during business hours, M-F 8:00 AM - 5:00 PM Central Time. 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 I have a [facility] place to live 11/16/2022 Sex and Gender [...] 11/23/2022 10:49 AM CDT Plan of Treatment Not on file Medical Devices Implanted Type Area Qa Intern Device Identifier Shelf Expiration Date Model / Serial / Lot Xience Stent 3.5 X 28 - [id number] Implanted:Qty: 1 on 10/16/2011 Cardiac Stent Newby Description:Device Manufactu rer - [employer]. Device Status Text - [id number]. Stent Inlay 7fr X 28cm - Lee [id number] Implanted:Qty: 1 on 02/09/2016 Ureteral Stent C.R.Bard Description:Device Manufactu rer - [employer] Patient [employer]. Device Status Text - [id number]. Procedures Procedure Name Priority Date/Time Associated Diagnosis Comments HEMOGLOBIN A1C, B Routine 06/29/2022 8:5 7 AM STAFF TOXICOLOGIST Diabetes Mellitus Type 2 (HCC) LIPID PANEL, S Routine 06/29/2022 8:57 AM STAFF TOXICOLOGIST Diabetes Mellitus Type 2 (HCC) COLOGUARD Routine 05/11/2022 7:40 AM STAFF TOXICOLOGIST Screening Cancer Colon CT ABDOMEN PELVIS WITHOUT IV CONTRAST RAD - Routine (most inpatients and all outpatients) 02/09/2016 1:08 AM CDT COLONOSCOPY Routine 04/13/2012 2:34 PM CDT from Last 3 Months or Most Recently Relevant to Health Maintenance Results * (ABNORMAL) Lipid Panel (06/29/2022 8:57 AM STAFF TOXICOLOGIST) Triglycerides 183(H) mg/dL 06/29/2022 9:46 AM STAFF TOXICOLOGIST AUST Comment: ----REFERENCE VALUE---- Normal: <150 mg/dL Borderline High: 150-199 mg/dL High: 200-499 mg/dL Very High: > or =500 mg/dL Cholesterol, Total 171 mg/dL 2022 9:46 AM STAFF TOXICOLOGIST AUST Comment: ----REFERENCE VALUE---- Desirable: < 200 mg/dL Borderline High: 200 - 239 mg/dL High: > or = 240 mg/dL Cholesterol, LDL, Calculated 103 mg/dL 06/29/2022 9:46 AM STAFF TOXICOLOGIST AUST Comment: ----REFERENCE VALUE---- Desirable: <100 mg/dL Above Desirable: 100-129 mg/dL Borderline High: 130-159 mg/dL High: 160-189 mg/dL Very High: >=190 mg/dL ----ADDITIONAL INFORMATION---- LDL cholesterol calculated using the Pleitez/NIH equation. Cholesterol, HDL 36(L) >=40 mg/dL 06/29/19 9:46 AM STAFF TOXICOLOGIST AUST Cholesterol, Non-HDL, Calculated 135 mg/dL 06/29/2022 9:46 AM STAFF TOXICOLOGIST AUST Comment: ----REFERENCE VALUE---- Desirable: <130 mg/dL Above Desirable: 130-159 mg/dL Borderline High: 160-189 mg/dL High: 190-219 mg/dL Very High: > or =220 mg/dL Fasting (8 HR or more) Yes 06/29/2022 8:59 AM STAFF TOXICOLOGIST AUST Blood (Blood, Venous) 06/29/2022 8:57 AM STAFF TOXICOLOGIST 06/29/2022 8:59 AM STAFF TOXICOLOGIST Chin Tang D.O. LAB BLOOD ADD-ON [facility] [address] [place] [address], [facility] [address] [place] [address] * (ABNORMAL) Hemoglobin A1c (06/29/2022 8:57 AM STAFF TOXICOLOGIST) Hemoglobin A1c, B 6.4(H) 4.2 - 5.6 % 06/29/2022 9:20 AM STAFF TOXICOLOGIST AUST Comment: Hemoglobin A1c values of 5.7-6.4 percent indicate an increased risk for developing diabetes mellitus. In diabetic patients, HbA1c goals should be discussed with healthcare provider. Blood (Blood, Venous) 06/29/2022 8:57 AM STAFF TOXICOLOGIST 06/29/2022 8:59 AM STAFF TOXICOLOGIST Chin Tang D.O. LAB BLOOD ADD-ON [facility] [address] [place] [address], [facility] [address] [place] [address] * Cologuard-Sent Out Lab (05/11/2022 7:40 AM STAFF TOXICOLOGIST) Result Negative Negative 05/17/2022 11:08 AM STAFF TOXICOLOGIST EXLI Comment: NEGATIVE TEST RESULT. A negative [...] screened with both Cologuard and colonoscopy. (Yuli Coleman et al, N Engl J Med 2014;370(14):1513-0097) The normal value (reference range) for this assay is negative. COLOGUARD RE-SCREENING RECOMMENDATION: Periodic colorectal cancer screening is an important part of preventive healthcare for asymptomatic individuals at average risk for colorectal cancer. ??Following a negative Cologuard result, the [place] Cancer Society and U.S. Multi-Society Task Force screening guidelines recommend a Cologuard re-screening interval of 3 years. References: [place] [employer] Guideline for Colorectal Cancer Screening: https://www.cancer.org/cancer/noadq-blyheb-ucouww/detection- diagnosis-staging/acs-recommendations.html.; Nasim FERRARA, Mayela PUGH, Cheryl WASHBURN, Colorectal Cancer Screening: Recommendations for Physicians and Patients from the U.S. Multi-Society Task Force on Colorectal Cancer Screening , Am J Gastroenterology 2017; 112:2403-6610. TEST DESCRIPTION: Composite algorithmic analysis of stool [...] screened with both Cologuard and colonoscopy. (Yuli Weinberg al, N Engl J Med 2014;370(14):4382-4542.) Cologuard may produce a false negative or false positive result (no colorectal cancer or precancerous polyp present at colonoscopy follow up). A negative Cologuard test result does not guarantee the absence of CRC or advanced adenoma (pre-cancer). The current Cologuard screening interval is every 3 years. ([place] [employer] Society and U.S. Multi-Society Task Force). Cologuard performance data in a 10,000 patient pivotal study using colonoscopy as the reference method can be accessed at the following location: www.Powervation/results. Additional description of the Cologuard test process, warnings and precautions can be found at www.12Societyrd.com. Stool (Stool) 05/11/2022 7:4 0 AM STAFF TOXICOLOGIST 05/12/2022 3:58 PM STAFF TOXICOLOGIST Chin Tang D.O. LAB BODY FLUIDS AND STOOLS ORDERABLES [employer] [address] [place] [id number] EX [facility] [address] [facility], [address] [place] [address] * Colonoscopy (04/13/2012 2:34 PM CDT) 04/13/2012 2:34 PM CDT David Finn M.D., Ph.D. GI PROCEDURE ORDERABLES [facility] [address] from Last 3 Months or Most Recently Relevant to Health Maintenance Care Teams Collection Systems Administrator Relationship Specialty Start Date End Date Chin Tang D.O. [address] [place] [id number] PCP - General Family Medicine 03/17/22
--- OUTSIDE RECORDS SUMMARY | 2023-12-01 08:49 | XMS_ITS | Clinical Summary ---
Author Organization [facility] Address [address] [place] [address] Care Team Providers Care Control Room Supervisor Name Role Phone Inactive, Administrativel Primary Care Provider Source Comments If you need additional information that is not available on Care Everywhere, please contact our Medical Records Department during business hours (Tuesday - Tuesday, 8 am - 5 pm) at . During nonbusiness hours, please contact our Trauma and Emergency Center at .[facility] and [facility] Medications * Medications may not be up to date as of this document. Always verify current medications with the patient. Medication Sig Dispensed Refills Start Date End Date Status Lipitor 40 mg Tab 1 daily PRN 04/14/2006 Active Lisinopril 5 mg Tab 1 daily PRN 04/14/2006 Activ e Zetia 10 mg Tab 1 daily PRN 04/14/2006 Active Metoprolol 50 mg Tab 1 daily PRN 04/14/2006 Acti ve Protonix 40 mg Tab 1 daily PRN 04/14/2006 Active Alavert 10 mg Tab, Rapid Dissolve Place prn by mouth for allergies PRN 04/14/2006 Active Immunizations Name Administration Dates Next Due Influenza Whole 04/11/2006 Pneumococcal Polysaccharide PPV23 04/11/2006 Social History Tobacco Use Types Packs/Day Years Used Date Smoking Tobacco: Never Assessed Sex and Gender Information Value Date Recorded Sex Assigned at Not on file Gender Identity Not on file Sexual Orientation Not on file Plan of Treatment Health Maintenance Due Date Last Done Comments CREATININE/EGFR 1955 HEPATITIS C SCREENING 1955 POTASSIUM 1955 DEPRESSION/ANXIETY PHQ4 1967 LIPID SCREEN 1973 WELLNESS VISIT 1973 DTaP/Tdap/Td Vaccine (1 - Tdap) 1974 PERTUSSIS 1974 COLONOSCOPY 2000 DIABETES SCREENING 2000 SHINGLES VACCINE (SHINGRIX) (1 of 2) 2005 RSV Vaccine (1 - 1-dose 60+ series) 2015 PNEUMOCOCCAL AGES 65 YEARS O R MORE (2 of 2 - PCV) 2020 04/11/2006 COVID-19 Vaccine (1 - 2022-2 4 season) 2023 INFLUENZA (Season Ended) 2024 04/11/2006 HPV Vaccine Aged Out No longer eligi ble based on patient's age to complete this topic Hepatitis B Vaccine Aged Out No longe r eligible based on patient's age to complete this topic POLIO (IPV) Vaccine Aged Out No longe r eligible based on patient's age to complete this topic Care Teams Control Room Supervisor Relationship Specialty Start Date End Date Inactive, Administrativel [address] [place] [address] PCP - General 05/03/15
--- OUTSIDE RECORDS SUMMARY | 2023-12-01 08:49 | XMS_ITS ---
Author Organization [facility] Address [address] [place] [address] Care Team Providers Care Connie Cleaner Name Role Phone Unavailable Unavailable Unavailable Surgery Details Not on file Complications Check Surgery Details section. Procedure Estimated Blood Loss Check Surgery Details section. Procedure Findings Check Surgery Details section. Procedure Specimens Taken Check Surgery Details section.
--- OUTSIDE RECORDS SUMMARY | 2023-12-01 08:49 | XMS_ITS | Encounter Summary ---
Author Organization [facility] Address [address] [place] [address] Care Team Providers Care Bottle Capping Machine Operator Name Role Phone Chin Tang D.O. Primary Care Provider Reason for Referral * Outpatient (Routine) - Authorized Specialty Diagnoses / Procedures Referred By Contac t Referred To Contact Family Medicine Chin Tang D.O. [address] [place] [phone] [facility] Referral ID Status Reason Start Date Expiration Date V isits Requested Visits Authorized [id number] Authorized 10/18/2023 04/18/2025 1 1 Encounter Details Date Type Department Care Team (Late st Contact Info) Description 10/18/2023 Orders Only [facility] PCP [facility] MNT Chin Tang D.O. [address] [place] [phone] Screening Examination Diabetes Mellitus Social History Tobacco Use Types Packs/Day Years Used Date Smoking Tobacco: Former Cigarettes Smokeless Tobacco: Never Alcohol Use Standard Drinks/Week Comments Yes 1 [...] your living situation today? I have a [facility] place to live 11/16/2022 Sex and Gender Information Value Date Recorded Sex Assigned at Not on file Gender Identity Not on file Sexual Orientation Not on file documented as of this encounter Plan of Treatment Scheduled Orders Name Type Priority Associated Diagnoses Orde r Schedule Glucose, Fasting Lab Routine Screening Examination Diabetes Mellitus Expected: 11/01/2023, Expires: 04/15/2024 Scheduled Referrals Name Type Priority Associated Diagnoses Orde r Schedule Family Medicine office visit (clinic) Outpatient Referral Routine Expected: 11/01/2023, Expires: 04/15/2024 documented as of this encounter Visit Diagnoses Diagnosis Screening Examination Diabetes Mellitus documented in this encounter Additional Health Concerns Assessment Noted Time PHQ-9 Depression Total Score: 0 02/24/20 23 8:23 PM CDT documented as of this encounter Care Teams Bottle Capping Machine Operator Relationship Specialty Start Date End Date Chin Tang D.OEmerson [address] [place] [phone] PCP - General Family Medicine 03/17/22 documented as of this encounter
== END 2023-12-01 08:42 | disposition home or self-care (01) ==
PROVIDERS: PCP Family Medicine; Visit Provider Family Medicine
DX: Z00.00 Encounter for general adult medical examination without abnormal findings (principal); E11.65 Type 2 diabetes mellitus with hyperglycemia; I10 Essential (primary) hypertension; I25.10 Atherosclerotic heart disease of native coronary artery without angina pectoris; N40.1 Benign prostatic hyperplasia with lower urinary tract symptoms; Z12.5 Encounter for screening for malignant neoplasm of prostate; E78.00 Pure hypercholesterolemia, unspecified; R35.1 Nocturia
CPT/HCPCS: 80053; 80061; 82043; 82570; G0103